=== PATIENT | female | born 1995 | race African-American/Black ===

== ENCOUNTER 2023-12-27 13:33 | Emergency (ER) | payer OTHER ==
[2023-12-27 13:43] VITALS: BMI 31.2
[2023-12-27] MEDS ORDERED: ACETAMINOPHEN 325 MG TABLET (FP) ONE ×2 (14:35→14:39)
[2023-12-27] MEDS: ACETAMINOPHEN 325 MG TABLET (FP) PO ONE (14:43)
[2023-12-27 16:45] VITALS: BP 129/81; PULSE 95; RESP 18; TEMP 98.2
[2023-12-27 19:16] LABS: BASO % 0.4 % (0-2.0); EOS % 0.6 % (0-4.5); HEMATOCRIT 32.6 % (32.4-45.2); HEMOGLOBIN 10.9 GM/dL (10.7-15.3); MCH 26.2 pg (25.7-33.7); MCHC 33.5 g/dl (32.0-36.0); MEAN CELL VOLUME 78.1 fl (80-96); MEAN PLT VOLUME 7.5 fl (7.5-11.1); MONO % 5.6 % (3.8-10.2); NEUT % 83.4 % (42.8-82.8); PLATELET COUNT 245 10^3/uL (134-434); RBC 4.17 M/mm3 (3.60-5.2); RDW 13.9 % (11.6-15.6); WHITE BLOOD COUNT 13.4 K/mm3 (4.0-10.0)
== END 2023-12-27 20:12 | disposition home or self-care (01) ==
LOC: JER 13:33
DX: O99.891 Other specified diseases and conditions complicating pregnancy (principal); M79.602 Pain in left arm; R07.81 Pleurodynia; O26.892 Other specified pregnancy related conditions, second trimester; R10.9 Unspecified abdominal pain; Z3A.27 27 weeks gestation of pregnancy
CPT/HCPCS: 36415; 71101-TC-LT-FY; 73030-TC-LT-FY; 73070-TC-LT-FY; 85025; 85384; 86850; 86900; 86901; 99284-25